=== PATIENT | female | born 1935 | race African-American/Black ===

== ENCOUNTER 2023-11-11 17:45 | Inpatient (IN) | payer MEDICARE, OTHER ==
[~2023-11-11] VITALS: Ht 152.4 cm; Wt 47.6 kg
[2023-11-11] MEDS: SODIUM CHLORIDE 0.9% 1,000 ML IV ONE (18:58)
[2023-11-11 19:35] LABS: BASOPHILS % 0.1 % (0.0-2.0); EOSINOPHILS % 0.5 % (0.0-5.0); HEMATOCRIT. 43.7 % (36.0-48.0); HEMOGLOBIN. 14.4 g/dL (12.0-16.0); LYMPHOCYTES % 8.6 % (20.0-50.0); MEAN CORPUSCULAR HEMOGLOBIN 31.2 pg (28.0-32.0); MEAN CORPUSCULAR VOLUME 94.5 fL (81.0-99.0); MONOCYTES % 8.8 % (2.0-8.0); PLATELET 260 x1000/uL (130-400); RED BLOOD CELL COUNT 4.62 mill/uL (4.2-5.4); WHITE BLOOD COUNT 10.7 x1000/uL (4.5-11.0)
[2023-11-11 19:43] LABS: CHLORIDE 107 mEq/L (98-107); SODIUM 136 mEq/L (136-145)
[2023-11-11 19:44] LABS: CALCIUM 9.7 mg/dL (8.7-10.4); CARBON DIOXIDE 20 mEq/L (21-32)
[2023-11-11 19:49] LABS: CREATININE 0.8 mg/dL (0.6-1.0); GLUCOSE 134 mg/dL (70-105); UREA NITROGEN BLOOD 11 mg/dL (9-23)
[2023-11-11] MEDS: ONDANSETRON HCL 4MG/2ML INJ IV ONE (19:59)
[2023-11-11] MEDS: ASPIRIN 81MG TABLET PO ONE (19:59)
[2023-11-11] MEDS: CLOPIDOGREL 75MG TABLET PO ONE (19:59)
[2023-11-11 20:00] LABS: ETHANOL BLOOD < 10 mg/dL (<10)
[2023-11-11 20:01] LABS: TROPONIN I HIGH SENSITIVITY 35 ng/L (3.0-34)
[2023-11-11] MEDS: METOCLOPRAMIDE HCL 10MG/2ML VIAL IV ONE (20:52)
[2023-11-11 21:59] LABS: INR 1.1; PROTHROMBIN TIME 11.8 sec (9.6-11.0)
[2023-11-11] MEDS: PREDNISONE 20MG TABLET PO ONE (22:00)
[2023-11-11] MEDS ORDERED: IOHEXOL-350 100 ML BOTTLE ONE (23:00)
[2023-11-11 23:10] VITALS: PULSE 111; RESP 16; O2SAT 89
[2023-11-11] MEDS: IPRATROPIUM/ALBUTEROL 0.5-3(2.5)MG/3ML NEB HHN ONE (23:10)
[2023-11-11] MEDS: PREDNISONE 20MG TABLET PO NR (23:45)
[2023-11-12 01:05] VITALS: BP 129/77; PULSE 83; PULSE 85; RESP 18; TEMP 98.1
[2023-11-12 04:00] VITALS: BP 103/65; PULSE 81; RESP 19; TEMP 97.9
[2023-11-12] MEDS ORDERED: IPRATROPIUM/ALBUTEROL 0.5-3(2.5)MG/3ML NEB HHN PRN (04:45)
[2023-11-12 08:00] VITALS: BP 132/63; PULSE 84; RESP 19; TEMP 97.6
[2023-11-12] MEDS: IPRATROPIUM/ALBUTEROL 0.5-3(2.5)MG/3ML NEB HHN SCH (08:50)
[2023-11-12] MEDS: ASPIRIN 81MG TABLET PO SCH (09:27)
[2023-11-12] MEDS: ENOXAPARIN 30MG/0.3ML SYR SUBCUT SCH (09:27)
[2023-11-12] MEDS ORDERED: HYDRALAZINE HCL 25MG TABLET PO PRN (09:45)
[2023-11-12] MEDS ORDERED: ASPIRIN 81MG EC TABLET PO SCH (09:45)
[2023-11-12] MEDS: CLOPIDOGREL 75MG TABLET PO SCH (10:44)
[2023-11-12] MEDS ORDERED: DOCUSATE SODIUM 100MG CAPSULE PO PRN (10:45)
[2023-11-12] MEDS ORDERED: ONDANSETRON HCL 4MG/2ML INJ IV PRN (10:45)
[2023-11-12] MEDS ORDERED: ACETAMINOPHEN 325MG TABLET PO PRN ×2 (10:45)
[2023-11-12] MEDS ORDERED: CLONIDINE 0.1MG TABLET PO PRN (10:45)
[2023-11-12] MEDS ORDERED: DEXTROSE 50% WATER 50ML SYRINGE IV PRN (10:45)
[2023-11-12] MEDS: BLOOD SUGAR DIAGNOSTIC STRIP TEST SCH (11:40)
[2023-11-12 12:00] VITALS: BP 141/76; PULSE 78; RESP 20; TEMP 97.4
[2023-11-12] MEDS: INSULIN LISPRO 100 UNITS/ML SUBCUT SCH (12:10)
[2023-11-12] MEDS: SODIUM CHLORIDE 0.9% 250 ML IV ONE (13:05)
[2023-11-12 16:00] VITALS: BP 121/64; PULSE 88; RESP 20; TEMP 97.8
[2023-11-12 16:44] LABS: HEMATOCRIT. 40.5 % (36.0-48.0); HEMOGLOBIN. 13.6 g/dL (12.0-16.0); MEAN CORPUSCULAR HEMOGLOBIN 31.2 pg (28.0-32.0); MEAN CORPUSCULAR HGB CONC 33.5 g/dL (31.0-37.0); MEAN CORPUSCULAR VOLUME 93.2 fL (81.0-99.0); MEAN PLATELET VOLUME 9.1 fl (7.4-10.4); PLATELET 289 x1000/uL (130-400); RED BLOOD CELL COUNT 4.35 mill/uL (4.2-5.4); WHITE BLOOD COUNT 8.9 x1000/uL (4.5-11.0)
[2023-11-12 16:45] LABS: DIFFERENTIAL COMMENT 1
[2023-11-12 16:48] LABS: CHLORIDE 105 mEq/L (98-107); POTASSIUM 3.6 mEq/L (3.5-5.1); SODIUM 139 mEq/L (136-145)
[2023-11-12 16:51] LABS: CALCIUM 9.6 mg/dL (8.7-10.4); CARBON DIOXIDE 27 mEq/L (21-32)
[2023-11-12 16:56] LABS: CREATINE KINASE MB FRACTION 1.8 ng/mL (0.5-3.6); CREATININE 0.8 mg/dL (0.6-1.0); GLUCOSE 125 mg/dL (70-105); UREA NITROGEN BLOOD 13 mg/dL (9-23)
[2023-11-12 16:57] LABS: ALANINE AMINOTRANSFERASE 11 IU/L (10-49); ASPARTATE AMINOTRANSFERASE 19 IU/L (<34); TROPONIN I HIGH SENSITIVITY 24 ng/L (3.0-34)
[2023-11-12 16:58] LABS: ALBUMIN 4.4 g/dL (3.2-4.8); BILIRUBIN DIRECT 0.1 mg/dL (<=3.0)
[2023-11-12 16:59] LABS: BILIRUBIN TOTAL 0.4 mg/dL (0.1-1.0); CREATINE KINASE 69 IU/L (34-145); PROTEIN TOTAL 6.6 g/dL (6.0-8.3)
[2023-11-12 17:30] LABS: PLATELET ESTIMATE NORMAL
[2023-11-12 20:00] VITALS: BP 129/79; PULSE 91; RESP 19; TEMP 97.9
[2023-11-12] MEDS ORDERED: ATORVASTATIN CALCIUM 40MG TABLET PO SCH (21:00)
[2023-11-12] MEDS: ATORVASTATIN CALCIUM 40MG TABLET PO SCH (21:47)
[2023-11-12 23:59] LABS: CREATINE KINASE MB FRACTION 1.1 ng/mL (0.5-3.6)
[2023-11-13] VITALS (9 sets, daily range): BP systolic 125–144; BP diastolic 62–85; PULSE 62–92; RESP 16–19; TEMP 97–98; O2SAT 98
[2023-11-13 03:29] LABS: CLARITY URINE CLEAR (CLEAR); COLOR URINE YELLOW (YELLOW); GLUCOSE URINE NEGATIVE (NEGATIVE); KETONES URINE NEGATIVE (NEGATIVE); LEUKOCYTE ESTERASE URINE TRACE (NEGATIVE); NITRITE URINE NEGATIVE (NEGATIVE); OCCULT BLOOD URINE NEGATIVE (NEGATIVE); PH URINE 5.5 (4.5-8.0); PROTEIN URINE NEGATIVE (NEGATIVE); SPECIFIC GRAVITY URINE 1.021 (1.005-1.030); UROBILINOGEN URINE 0.2 E.U./dL (0.2-1.0)
[2023-11-13 03:45] LABS: BACTERIA URINE TRACE; RBC URINE 0-2 /hpf (0-2); SQUAMOUS EPITHELIAL CELL URINE FEW /lpf (RARE/1+); WBC URINE 0-2 /hpf (0-2)
[2023-11-13 03:48] LABS: *AMPHETAMINES SCREEN URINE NEGATIVE (NEGATIVE); *BARBITURATES SCREEN URINE NEGATIVE (NEGATIVE); *BENZODIAZEPINES SCREEN URINE NEGATIVE (NEGATIVE); *COCAINE SCREEN URINE NEGATIVE (NEGATIVE); CANNABINOID URINE SCREEN NEGATIVE (NEGATIVE); ECSTASY MDMA SCREEN URINE NEGATIVE (NEGATIVE); METHADONE URINE SCREEN NEGATIVE (NEGATIVE); OPIATES URINE SCREEN NEGATIVE (NEGATIVE); PHENCYCLIDINE URINE SCREEN NEGATIVE (NEGATIVE)
[2023-11-13 06:44] LABS: CHLORIDE 107 mEq/L (98-107); POTASSIUM 3.4 mEq/L (3.5-5.1); SODIUM 141 mEq/L (136-145)
[2023-11-13 06:45] LABS: CARBON DIOXIDE 28 mEq/L (21-32)
[2023-11-13 06:47] LABS: BASOPHILS % 0.3 % (0.0-2.0); EOSINOPHILS % 0.5 % (0.0-5.0); HEMATOCRIT. 36.9 % (36.0-48.0); HEMOGLOBIN. 12.5 g/dL (12.0-16.0); LYMPHOCYTES % 15.1 % (20.0-50.0); MEAN CORPUSCULAR HGB CONC 33.9 g/dL (31.0-37.0); MEAN CORPUSCULAR VOLUME 91.5 fL (81.0-99.0); MONOCYTES % 11.6 % (2.0-8.0); NEUTROPHILS % 72.5 % (40.0-76.0); PLATELET 243 x1000/uL (130-400); RED BLOOD CELL COUNT 4.03 mill/uL (4.2-5.4); RED CELL DISTRIBUTION WIDTH 13.8 % (11.6-14.6); WHITE BLOOD COUNT 9.5 x1000/uL (4.5-11.0)
[2023-11-13 06:50] LABS: CREATININE 0.7 mg/dL (0.6-1.0); GLUCOSE 75 mg/dL (70-105)
[2023-11-13 06:51] LABS: LDL CHOLESTEROL 123 mg/dL (5-100); TRIGLYCERIDE 56 mg/dL (0-150); UREA NITROGEN BLOOD 14 mg/dL (9-23)
[2023-11-13 06:52] LABS: CHOLESTEROL 193 mg/dL (<200); HDL CHOLESTEROL 64 mg/dL (>65)
[2023-11-13] MEDS: PANTOPRAZOLE SODIUM 40 MG/VIAL IV SCH (08:55)
[2023-11-13] MEDS: POTASSIUM CHLORIDE 20MEQ TABLET SR PO NR (12:00)
[2023-11-13] MEDS ORDERED: ATOR80TA MT (13:59)
[2023-11-13] MEDS ORDERED: CLOP-31 MT (13:59)
[2023-11-13] MEDS ORDERED: ASPI-1497 MT (13:59)
== END 2023-11-13 19:00 | disposition home health service (06) | DRG 66 ==
LOC: ER 17:45 → 5WST 21:47 → EDBEDREQ 21:50 → 7EST 11-12 01:36
PROVIDERS: ADMIT Internal Medicine; ATTEND Internal Medicine
DX: I63.81 Other cerebral infarction due to occlusion or stenosis of small artery (principal); J43.9 Emphysema, unspecified; I10 Essential (primary) hypertension; R47.1 Dysarthria and anarthria; R29.703 NIHSS score 3; Z79.899 Other long term (current) drug therapy
CPT/HCPCS: 36415; 70496; 70498; 70551; 71045; 80048; 80061; 80076; 80305; 80320; 81003; 82550; 82553; 82962; 83036; 83880; 84484; 85025; 92610; 93005; 93306; 94640; 97116; 97162; 97166; 99291; C9113; J1650; J2405; J2765; J7030; J7512; Q9967; G0480